=== PATIENT | female | born 2000 | race Caucasian/White ===

== ENCOUNTER 2018-07-24 02:54 | Emergency (ER) | payer BC ==
[~2018-07-24] VITALS: Ht 162.6 cm; Wt 59.7 kg
[2018-07-24 02:57] VITALS: BP 120/83
== END 2018-07-24 03:56 | disposition home or self-care (01) ==
LOC: ED 03:43
DX: H69.81 Other specified disorders of Eustachian tube, right ear (principal); F17.210 Nicotine dependence, cigarettes, uncomplicated
CPT/HCPCS: 99281